=== PATIENT | female | born 1980 | race Caucasian/White ===

== ENCOUNTER → 2024-05-04 13:35 | Outpatient (BNVA) | payer MEDICAID, SELFPAY | PROVIDERS: PCP Family Medicine; Visit Provider Family Medicine | DX: M79.641 Pain in right hand (principal); M79.642 Pain in left hand; F41.1 Generalized anxiety disorder; F41.0 Panic disorder [episodic paroxysmal anxiety]; K90.0 Celiac disease; K58.9 Irritable bowel syndrome, unspecified; E55.9 Vitamin D deficiency, unspecified; R79.89 Other specified abnormal findings of blood chemistry; E83.42 Hypomagnesemia; G47.00 Insomnia, unspecified; R11.2 Nausea with vomiting, unspecified | CPT/HCPCS: 80053; 80061; 82306; 82607; 83735; 84439; 84443; 85025; 85651; 86038; 86140; 86431 ==